=== PATIENT | female | born 1960 | race Caucasian/White ===

== ENCOUNTER 2018-07-27 20:59 | Emergency (ER) | payer MEDICAID, OTHER ==
[~2018-07-27] VITALS: Ht 152.4 cm; Wt 106.8 kg
[2018-07-27] MEDS ORDERED: AMLO5TAB PO ×2 (22:15→22:36)
[2018-07-27] MEDS ORDERED: CETI10TA18 PO ×2 (22:15→22:36)
[2018-07-27] MEDS ORDERED: PARO20TA6 PO ×2 (22:15→22:36)
[2018-07-27] MEDS ORDERED: IMIP25TA7 PO ×2 (22:15→22:36)
[2018-07-27] MEDS ORDERED: MONT10TA24 PO ×2 (22:15→22:36)
[2018-07-27] MEDS ORDERED: ATOR20TA PO ×2 (22:15→22:36)
[2018-07-27] MEDS ORDERED: ISOS30TA6 PO ×2 (22:15→22:36)
[2018-07-27] MEDS ORDERED: MOME17SP BOTHNARES ×2 (22:15→22:36)
[2018-07-27] MEDS ORDERED: ipratropium/albuterol 3ml nebule NEB ONE (22:15)
[2018-07-27] MEDS ORDERED: FLUT100B3 IH ×2 (22:16→22:36)
[2018-07-27] MEDS ORDERED: ALBU8.5H8 INH ×2 (22:17→22:36)
[2018-07-27] MEDS ORDERED: amLODIPine 5mg tablet PO ONE (22:20)
[2018-07-27 23:06] VITALS: BP 153/98
== END 2018-07-27 23:06 | disposition home or self-care (01) ==
LOC: ER 21:00
DX: J44.1 Chronic obstructive pulmonary disease with (acute) exacerbation (principal); I10 Essential (primary) hypertension; F32.9 Major depressive disorder, single episode, unspecified; F17.200 Nicotine dependence, unspecified, uncomplicated; Z76.0 Encounter for issue of repeat prescription; Z88.5 Allergy status to narcotic agent; Z79.899 Other long term (current) drug therapy
CPT/HCPCS: 94640; 94760; 99283; 99284